=== PATIENT | female | born 1980 | race Caucasian/White ===

== ENCOUNTER 2016-10-07 18:56 | Emergency (ER) | payer OTHER ==
[~2016-10-07] VITALS: Ht 162.6 cm; Wt 68.0 kg
[~2016-10-07 18:56] MED LIST: BACITUD TOP; BACTDS PO; CEPH-443 PO; METH40TA PO
[2016-10-07 19:00] VITALS: Ht 162.6 cm; Wt 68.0 kg
[2016-10-07] MEDS ORDERED: CLINDAMYCIN 300 MG INJ IM ONE (21:00)
[2016-10-07] MEDS ORDERED: CLIN-73 PO (21:04)
--- NOTE | 2016-10-07 21:17 | RADRPT ---
PROCEDURE: XR Left Ankle CLINICAL INDICATION: Rule out osteomyelitis TECHNIQUE: Standard 3 view radiographs were submitted. COMPARISON: None FINDINGS: Osseous structures: Well mineralized and intact with no fracture or destructive process identified. Joint spaces: Well maintained with no significant erosions or spurring evident. Soft tissues: There is mild soft tissue swelling most evident laterally. IMPRESSION: 1. Mild soft tissue swelling most evident laterally. 2. Otherwise, unremarkable portable left ankle series. Physician Candace Date Time Electronically viewed and signed by Josie Rene Physician on 10/07/2016 21:16 /
--- NOTE | 2016-10-07 21:18 | RADRPT ---
PROCEDURE: XR Right Ankle CLINICAL INDICATION: Rule out osteomyelitis TECHNIQUE: Standard 3 view radiographs were submitted. COMPARISON: None FINDINGS: Osseous structures: Well mineralized and intact with no fracture or destructive process identified. Joint spaces: Well maintained with no significant erosions or spurring evident. Soft tissues: There is mild soft tissue prominence seen diffusely. There is a lobulated contour to the skin surface along the medial distal lower leg. IMPRESSION: 1. Soft tissue prominence with a lobulated contour to the medial left lower leg skin surface, possi claudia representing an ulceration. 2. The osseous elements and joint spaces appear unremarkable. Physician Candace Date Time Electronically viewed and signed by Physician Candace on 10/07/2016 21:18 /
--- NOTE | 2016-10-07 21:21 | ERD ---
ER Documentation Chief Complaint Date/Time DATE: 10/07/16 TIME: 21:20 Chief Complaint requesting dressing change on both ankle HPI This is a 36-year-old female with a history of hepatitis C, chronic ulcers in bilateral ankle for the past year. Patient states that last time she went to a doctor was 6 months ago regarding this and she never followed up. Patient states that the ulcers have been constant, she is complaining of swelling and redness at both extremities, however she says it was constant for the past 6 months and is not worsening. Patient has been to numerous times for the same complaint. Patient states that in the past she was given antibiotics but it did not improve. She has not taken any medications recently. She denies any fevers. She states that she has been changing the dressing on her feet twice a day every day. ROS All systems reviewed and are negative except as per history of present illness. Medications Home Meds Active Scripts Clindamycin Hcl* (Clindamycin Hcl*) 300 Mg Capsule, 300 MG PO TID for 10 Days, CAP Prov:VENKATA PEARSON PA-C 10/07/16 Bacitracin* (Bacitracin Oint (UD)*) 1 Applic Oint, 1 APPLIC TOP BID for 10 Days , PKT APPLY TO Prov:JOSEFINA SALINAS MD 05/17/16 Cephalexin* (Keflex*) 500 Mg Capsule, 500 MG PO Q6, #40 CAP Prov:JOSEFINA SALINAS MD 05/17/16 Sulfamethoxazole-Trimethoprim* (Bactrim* DS) 800-160 Mg Tab, 1 TAB PO BID for 10 Days, TAB Prov:JOSEFINA SALINAS MD 05/17/16 Reported Medications Methadone Hcl (Methadone Hcl) 40 Mg Tablet.vilma, 30 MG PO DAILY, 0 Refills 06/08/10 Allergies Allergies: Coded Allergies: No Known Drug Allergies (Verified Allergy, Mild, 05/17/16) PMhx/Soc History of Surgery: Yes (Ovarian cyst removal, necrotizing fasciitis) Anesthesia Reaction: No Hx Neurological Disorder: No Hx Respiratory Disorders: No Hx Cardiac Disorders: No Hx 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) Hx Miscellaneous Medical Probl: Yes (HEP C) Hx Alcohol Use: No 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, 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) Hx Tobacco Use: Yes (1-2 packs/week) Smoking Status: Current every day smoker Physical Exam Vitals Vital Signs Date Time Temp Pulse Resp B/P Pulse Ox O2 Delivery O2 Flow Rate FiO2 10/07/16 19:00 97.6 102 20 132/80 100 Physical Exam General: WD/WN, in no apparent distress, non-toxic appearing HENT: NC/AT Eyes: Conjunctiva normal Neck: Supple Pulm: Clear to auscultation, normal labored breathing; no wheezing/rales/ rhonchi heard CV: Good capillary refill GI: Non-distended, no guarding Back: No masses Ext: No clubbing, cyanosis, or edema Neuro: Moves on all fours Skin: erythema, edema bilateral lower extremities at ankle to distal calf 7cm ulcer on the right lateral ankle 6cm ulcer on the left ankle Psych: Normal mood Results 24 hrs Current Medications Medications (Trade) Dose Ordered Sig/Kwadwo Route PRN Reason Start Time Stop Time Status Last Admin Dose Admin Clindamycin Phosphate (Cleocin) 600 mg ONCE ONCE IM 10/07/16 21:00 10/07/16 21:01 DC 10/07/16 22:08 PROCEDURE: XR Right Ankle CLINICAL INDICATION: Rule out osteomyelitis TECHNIQUE: Standard 3 view radiographs were submitted. COMPARISON: None FINDINGS: Osseous structures: Well mineralized and intact with no fracture or destructive process identified. Joint spaces: Well maintained with no significant erosions or spurring evident. Soft tissues: There is mild soft tissue prominence seen diffusely. There is a lobulated contour to the skin surface along the medial distal lower leg. IMPRESSION: 1. Soft tissue prominence with a lobulated contour to the medial left lower leg skin surface, possibly representing an ulceration. 2. The osseous elements and joint spaces appear unremarkable. Physician Candace Date Time Electronically viewed and signed by Physician Candace on 10/07/2016 21:18 RH/ CC: VENKATA PEARSON PA-C PROCEDURE: XR Left Ankle CLINICAL INDICATION: Rule out osteomyelitis TECHNIQUE: Standard 3 view radiographs were submitted. COMPARISON: None FINDINGS: Osseous structures: Well mineralized and intact with no fracture or destructive process identified. Joint spaces: Well maintained with no significant erosions or spurring evident. Soft tissues: There is mild soft tissue swelling most evident laterally. IMPRESSION: 1. Mild soft tissue swelling most evident laterally. 2. Otherwise, unremarkable portable left ankle series. Physician Candace Date Time Electronically viewed and signed by Josie Rene Physician on 10/07/2016 21:16 RH/ CC: VENKATA PEARSON PA-C Procedures/MDM This is a 36-year-old female with a history of hepatitis C and chronic wound ulcers on bilateral distal calf for the past year. Patient has been here numerous times for the same complaint. Patient states her wounds have been constant and have not worsened. On examination patient did have deep ulcers, patient has significant signs of venous insufficiency however I have a low suspicion for severe cellulitis due to the chronic nature of her condition, low suspicion for osteomyelitis. Patient will still be treated empirically with clindamycin. Patient was given her first dose in the ER. A wet-to-dry dressing was applied bilaterally. Instructions have been given to follow-up at the amputation center in the next couple days. Bilateral x-rays did not show any evidence of any fracture or osteomyelitis. Bilateral venous ultrasound did not show any evidence of DVT. I discussed the patient to return to the ER for any worsening signs or symptoms. Dr. Portillo has been consulted regarding this case, he has evaluated the patient as well and agrees with my plan above. Patient is stable for discharge approximately return to the ER for any worsening signs or symptoms. She understands and agrees with this plan Departure Diagnosis: Primary Impression: Ulcers of both lower extremities Additional Impression: Venous insufficiency (chronic) (peripheral) Condition: Fair Patient Instructions: Wound Care, Chronic Venous Insufficiency: Treating Ulcers , Peripheral Edema, Bilateral Referrals: [facility] Additional Instructions: FOLLOW-UP WITH [facility] WITHIN NEXT COUPLE DAYS Take all medicines as directed. Return to this facility if you are not improving as expected. VENKATA PEARSON PA-C Oct 07, 2016 21:21
--- NOTE | 2016-10-07 21:37 | RADRPT ---
PROCEDURE: US Lower extremity Venous. CLINICAL INDICATION: Pain and swelling. TECHNIQUE: Multiple sonographic images of the bilateral lower extremity deep venous system was obt ained utilizing grayscale, color-flow, compressive sonography and doppler imaging with augmentation. The images were reviewed on a PACS workstation. COMPARISON: None. FINDINGS: There is normal compressibility and flow within the bilateral common femoral, deep femoral, superfic ial femoral and popliteal veins. The deep veins the calf were incompletely visualized. IMPRESSION: No sonographic evidence for deep venous thrombosis. RPTAT:AAJJ Physician Carina Date Time Electronically viewed and signed by Physician Carina on 10/07/2016 21:37 ITZEL/
== END 2016-10-07 22:27 | disposition home or self-care (01) ==
LOC: FTE 18:56
DX: L97.329 Non-pressure chronic ulcer of left ankle with unspecified severity (principal); F17.210 Nicotine dependence, cigarettes, uncomplicated; I87.2 Venous insufficiency (chronic) (peripheral); L97.319 Non-pressure chronic ulcer of right ankle with unspecified severity
CPT/HCPCS: 73610; 93965; 96372; Z7502; Z7610